=== PATIENT | female | born 1930 | race Caucasian/White ===

== ENCOUNTER 2017-05-13 14:42 | Inpatient (IN) | payer MEDICARE, BC ==
[~2017-05-13 14:42] MED LIST: ALPRAZOLAM0.25 MG PO; AMBIEN10 M1 PO; AMLODIPINE-BEN1 EAC1 PO; BACTRIM1 TAB PO; BALANCED B-501 CAP PO; BONIVA; BOOST244 ML PO; CALCIUM 600 +1 EAC2 PO; CENTRUM SILVER1 TA PO; COREG25 M1 PO; COREG6.25 MG PO; COUMADIN2 M1 PO; EYE DROPS EACH EYE; FLUOXETINE HCL20 MG PO; FOSAMAX10 MG PO; GAVISCON E1 TAB.CHEW; GAVISCON500 MG PO; H PO; LIFE-PACK0.8 MG/COM; MACROBID 100 M100 MG PO; MILK OF MA400 MG/5 M PO; MULTIVITAMIN1 CAP PO; NORCO 5/325 TAB1 TAB PO; OCUVITE TABLET1 EACH PO; PROMETHAZINE HC25 M3 PO; PROTONIX40 M2 PO; PROTONIX40 MG; SENOKOT-S TABLE1 TAB PO; TRAMADOL HCL50 MG PO; TYLENOL EXTRA500 MG PO; TYLENOL325 M1 PO; TYLENOL325 MG; ULTRAM50 M1 PO; VIACTIV CAPLET1 EACH; VICODIN 5/500 T1 TAB PO; VITAMIN D; XALATAN2.5 ML OP; XANAX0.25 M1 PO; [UNRECOGNIZED DRUG - OTHER] PO
[2017-05-13] MEDS ORDERED: BUPROPION XL150 M1 PO (14:58)
[2017-05-13] MEDS ORDERED: LEXAPRO20 M2 PO (15:00)
[2017-05-13] MEDS ORDERED: DICYCLOMINE HCL20 M1 PO (15:02)
[2017-05-13] MEDS ORDERED: FLONASE ALLERG9.9 ML (15:03)
[2017-05-13] MEDS ORDERED: LOMOTIL 2.5-0.1 EACH PO (15:04)
[2017-05-13 15:25] LABS: URINE APPEARANCE CLEAR; URINE BILIRUBIN NEGATIVE (NEG); URINE BLOOD NEGATIVE (NEG); URINE COLOR YELLOW; URINE GLUCOSE (UA) NEGATIVE (NEG); URINE KETONE NEGATIVE (NEG); URINE LEUKOCYTE ESTERASE POSITIVE (NEG); URINE NITRITE NEGATIVE (NEG); URINE PROTEIN NEGATIVE (NEG); URINE SPECIFIC GRAVITY 1.015 (1.003-1.030)
[2017-05-13 15:26] LABS: BASO % 0.2 % (0-2); EOS % 2.3 % (0-7); EOSINOPHIL ABSOLUTE COUNT 0.1 tho/cmm (0.0-0.7); HCT-HEMATOCRIT 36.4 % (34.0-49.0); HGB-HEMOGLOBIN 12.3 gm/dl (12.0-15.5); IMMATURE GRANULOCYTES ABSOLUTE 0.04 tho/cmm (0-0.03); IMMATURE GRANULOCYTES PERCENT 0.7 % (0-0.3); LYMPH % 23.9 % (20-45); LYMPH ABSOLUTE COUNT 1.5 tho/cmm (0.8-4.5); MCH (MEAN CORPUSCULAR HGB) 32.2 pg (28.0-32.0); MCHC MEAN CORPUSCULAR HGB CONC 33.8 % (32.0-36.0); MCV (MEAN CELL VOLUME) 95.3 fl (82.0-96.0); MEAN PLATELET VOLUME 9.5 cmc (9.4-12.4); MONO % 10.1 % (0-12); MONOCYTE ABSOLUTE COUNT 0.6 tho/cmm (0.0-1.2); NEUTROPHIL ABSOLUTE COUNT 3.9 tho/cmm (1.6-8.0); NEUTROPHIL-AUTOMATED 3.9 tho/cmm (1.6-8.0); NEUTROPHILS % 62.8 % (40-80); PLATELET COUNT 169 tho/cmm (150-450); RED BLOOD COUNT 3.82 mil/cmm (4.00-5.20); RED CELL DISTRIBUTION WIDTH 14.3 % (12.4-16.4); WHITE BLOOD COUNT 6.1 tho/cmm (4.0-10.0)
[2017-05-13 15:30] LABS: INR 1.4 INR (0.9-1.1); PROTHROMBIN TIME 16.3 SECONDS (9.0-13.6)
[2017-05-13 15:30] LABS: URINE EPITHELIAL CELLS 0-3 /[HPF] (0-10); URINE RBC 0 /[HPF] (0-5); URINE WBC 0 /[HPF] (0-5)
[2017-05-13] MEDS ORDERED: ALIVE WOMEN'S1 EACH PO (15:39)
[2017-05-13] MEDS ORDERED: GAVISCON PO (15:39)
[2017-05-13] MEDS ORDERED: TYLENOL EXTRA500 M1 PO (15:39)
[2017-05-13] MEDS ORDERED: SIMILASAN OP (15:41)
[2017-05-13 15:42] LABS: ANION GAP 13 mmol/L (0-20); BLOOD UREA NITROGEN 21 mg/dl (6-24); CARBON DIOXIDE-VENOUS 24 mmol/L (22-32); CHLORIDE 107 mmol/l (96-110); CREATININE 1.75 mg/dl (0.50-1.10); GLUCOSE 103 mg/dL (70-110); POTASSIUM 4.3 mmol/L (3.7-5.1); SODIUM 140 mmol/L (135-145); eGFR VALUE FOR BLACK 30 mL/Min
[2017-05-13] MEDS ORDERED: OCUVITE EYE +1 EACH PO (15:42)
[2017-05-13] MEDS ORDERED: IMODIUM A-D2 M3 PO (15:43)
[2017-05-14 05:43] LABS: BASO % 0.2 % (0-2); EOS % 1.7 % (0-7); EOSINOPHIL ABSOLUTE COUNT 0.1 tho/cmm (0.0-0.7); HGB-HEMOGLOBIN 11.5 gm/dl (12.0-15.5); IMMATURE GRANULOCYTES ABSOLUTE 0.01 tho/cmm (0-0.03); IMMATURE GRANULOCYTES PERCENT 0.2 % (0-0.3); LYMPH % 20.1 % (20-45); LYMPH ABSOLUTE COUNT 1.2 tho/cmm (0.8-4.5); MCH (MEAN CORPUSCULAR HGB) 32.2 pg (28.0-32.0); MCHC MEAN CORPUSCULAR HGB CONC 33.8 % (32.0-36.0); MCV (MEAN CELL VOLUME) 95.2 fl (82.0-96.0); MEAN PLATELET VOLUME 9.7 cmc (9.4-12.4); MONO % 14.1 % (0-12); MONOCYTE ABSOLUTE COUNT 0.9 tho/cmm (0.0-1.2); NEUTROPHIL ABSOLUTE COUNT 3.8 tho/cmm (1.6-8.0); NEUTROPHIL-AUTOMATED 3.8 tho/cmm (1.6-8.0); NEUTROPHILS % 63.7 % (40-80); PLATELET COUNT 141 tho/cmm (150-450); RED BLOOD COUNT 3.57 mil/cmm (4.00-5.20); RED CELL DISTRIBUTION WIDTH 14.3 % (12.4-16.4)
[2017-05-14 05:50] LABS: INR 1.4 INR (0.9-1.1); PROTHROMBIN TIME 16.9 SECONDS (9.0-13.6)
[2017-05-14 05:56] LABS: ANION GAP 11 mmol/L (0-20); BLOOD UREA NITROGEN 23 mg/dl (6-24); CALCIUM 8.6 mg/dl (8.5-10.5); CARBON DIOXIDE-VENOUS 27 mmol/L (22-32); CHLORIDE 105 mmol/l (96-110); GLUCOSE 111 mg/dL (70-110); POTASSIUM 3.8 mmol/L (3.7-5.1); SODIUM 139 mmol/L (135-145); eGFR VALUE FOR BLACK 43 mL/Min
[2017-05-15 05:49] LABS: BASO % 0.1 % (0-2); EOS % 1.5 % (0-7); EOSINOPHIL ABSOLUTE COUNT 0.1 tho/cmm (0.0-0.7); HCT-HEMATOCRIT 32.6 % (34.0-49.0); HGB-HEMOGLOBIN 10.8 gm/dl (12.0-15.5); IMMATURE GRANULOCYTES ABSOLUTE 0.01 tho/cmm (0-0.03); IMMATURE GRANULOCYTES PERCENT 0.1 % (0-0.3); LYMPH % 18.9 % (20-45); LYMPH ABSOLUTE COUNT 1.4 tho/cmm (0.8-4.5); MCH (MEAN CORPUSCULAR HGB) 32.1 pg (28.0-32.0); MCHC MEAN CORPUSCULAR HGB CONC 33.1 % (32.0-36.0); MEAN PLATELET VOLUME 9.5 cmc (9.4-12.4); MONO % 14.5 % (0-12); MONOCYTE ABSOLUTE COUNT 1.1 tho/cmm (0.0-1.2); NEUTROPHIL ABSOLUTE COUNT 4.7 tho/cmm (1.6-8.0); NEUTROPHIL-AUTOMATED 4.7 tho/cmm (1.6-8.0); NEUTROPHILS % 64.9 % (40-80); PLATELET COUNT 116 tho/cmm (150-450); RED BLOOD COUNT 3.36 mil/cmm (4.00-5.20); RED CELL DISTRIBUTION WIDTH 14.4 % (12.4-16.4); WHITE BLOOD COUNT 7.3 tho/cmm (4.0-10.0)
[2017-05-15 05:52] LABS: INR 1.3 INR (0.9-1.1); PROTHROMBIN TIME 14.7 SECONDS (9.0-13.6)
[2017-05-15 06:02] LABS: ANION GAP 11 mmol/L (0-20); BLOOD UREA NITROGEN 19 mg/dl (6-24); CALCIUM 8.3 mg/dl (8.5-10.5); CARBON DIOXIDE-VENOUS 27 mmol/L (22-32); CHLORIDE 106 mmol/l (96-110); CREATININE 1.18 mg/dl (0.50-1.10); GLUCOSE 131 mg/dL (70-110); POTASSIUM 4.1 mmol/L (3.7-5.1); SODIUM 140 mmol/L (135-145); eGFR VALUE FOR BLACK 48 mL/Min
[2017-05-16 05:31] LABS: HCT-HEMATOCRIT 31.7 % (34.0-49.0); HGB-HEMOGLOBIN 10.6 gm/dl (12.0-15.5); MCV (MEAN CELL VOLUME) 96.6 fl (82.0-96.0); RED CELL DISTRIBUTION WIDTH 14.1 % (12.4-16.4)
[2017-05-16 05:37] LABS: INR 1.3 INR (0.9-1.1); PROTHROMBIN TIME 15.1 SECONDS (9.0-13.6)
[2017-05-16] MEDS ORDERED: MACROBID 100 M100 M1 PO (12:05)
[2017-05-16] MEDS ORDERED: LOVENOX80 MG/0.1 SC (12:05)
[2017-05-16] MEDS ORDERED: TYLENOL325 M2 PO (12:08)
[2017-05-16] MEDS ORDERED: SENOKOT8.6 M1 PO (12:10)
[2017-05-16] MEDS ORDERED: PERCOCET 5-3251 EACH PO (13:02)
[2017-06-23] MEDS ORDERED: LEVAQUIN750 M1 PO (05:28)
[2017-06-23] MEDS ORDERED: COUMADIN4 M1 PO (22:29)
[2017-06-23] MEDS ORDERED: OS-CAL 500+D31 EAC1 PO (22:32)
[2017-06-23] MEDS ORDERED: BISCOLAX10 MG PR (22:38)
[2017-06-23] MEDS ORDERED: ALBUTEROL2.5 MG/3 M INH (22:39)
[2017-06-23] MEDS ORDERED: LEVAQUIN500 M1 PO (22:41)
[2017-06-24] MEDS ORDERED: MILK OF MAGNESIA PO (12:13)
[2017-06-24] MEDS ORDERED: DEBROX15 M1 EACH EAR (12:13)
[2017-06-24] MEDS ORDERED: DESITIN57 GM TOP (12:14)
[2017-06-27] MEDS ORDERED: INVANZ1000 MG/VI IV (14:12)
[2017-06-27] MEDS ORDERED: FLAGYL500 M1 PO (14:13)
[2017-06-27] MEDS ORDERED: STOP THE FOLLOWING (14:14)
[2017-07-06] MEDS ORDERED: INVANZ1000 MG/VI IV (09:19)
[2017-07-06] MEDS ORDERED: OCUVITE EYE +1 EACH PO (09:20)
[2017-07-06] MEDS ORDERED: ALIVE WOMEN'S1 EACH PO (09:20)
[2017-07-06] MEDS ORDERED: COREG25 M1 PO (09:20)
[2017-07-06] MEDS ORDERED: AMBIEN10 M1 PO (09:20)
[2017-07-06] MEDS ORDERED: COUMADIN3 M1 PO (09:21)
[2017-07-06] MEDS ORDERED: SENNA8.6 M2 PO (09:21)
[2017-07-06] MEDS ORDERED: PROTONIX40 M2 PO (09:21)
[2017-07-06] MEDS ORDERED: COUMADIN4 M1 PO (09:21)
[2017-07-06] MEDS ORDERED: CALCIUM 500 +1 EA11 PO (09:22)
[2017-07-06] MEDS ORDERED: LEXAPRO20 M2 PO (09:23)
[2017-07-06] MEDS ORDERED: FLAGYL500 M1 PO (09:24)
[2017-07-06] MEDS ORDERED: ZOFRAN4 M2 PO (09:24)
[2017-07-06] MEDS ORDERED: PERCOCET 5-3251 EACH PO (09:24)
[2017-07-06] MEDS ORDERED: ALBUTEROL2.5 MG/3 M NEB (09:25)
[2017-07-06] MEDS ORDERED: GAVISCON PO (09:25)
[2017-07-06] MEDS ORDERED: DULCOLAX10 MG PR (09:25)
[2017-07-06] MEDS ORDERED: MILK OF MAGNESIA PO (09:25)
[2017-07-06] MEDS ORDERED: TYLENOL325 M2 PO (09:27)
[2017-07-06] MEDS ORDERED: SIMILASAN OP (09:27)
[2017-07-06] MEDS ORDERED: XANAX0.25 M1 PO (09:29)
[2017-07-06] MEDS ORDERED: DEBROX15 M1 OT (09:33)
[2017-07-06] MEDS ORDERED: DESITIN57 GM TP (09:34)
== END 2017-05-16 13:40 | DRG 536 ==
LOC: EDMED 14:42 → EMR2 18:12 → 5EB 20:00
PROVIDERS: Emergency Medicine; Internal Medicine; Nurse Practitioner; ADMIT Hospitalist
DX: S32.402A Unspecified fracture of left acetabulum, initial encounter for closed fracture (principal); N17.9 Acute kidney failure, unspecified; I10 Essential (primary) hypertension; K21.9 Gastro-esophageal reflux disease without esophagitis; K58.9 Irritable bowel syndrome, unspecified; F41.9 Anxiety disorder, unspecified; W19.XXXA Unspecified fall, initial encounter
CPT/HCPCS: J1170; J1650; J2270; J7030